=== PATIENT | male | born 1970 | race Caucasian/White ===

== ENCOUNTER 2021-05-07 10:17 | Emergency (ER) | payer MEDICAID ==
[~2021-05-07] VITALS: Ht 172.7 cm; Wt 95.5 kg
[~2021-05-07 10:17] MED LIST: ZOF4T PO
[2021-05-07] MEDS ORDERED: normal saline 1000ML IV soln IVB ONE (11:20)
[2021-05-07 11:23] LABS: EOSINOPHILS % (AUTO) 0 % (0-6); HEMATOCRIT 42.1 % (42.0-52.0); HEMOGLOBIN 14.2 g/dl (14.0-17.9); LYMPHOCYTES # (AUTO) 1.1 X10'3 (1.1-4.8); LYMPHOCYTES % (AUTO) 38.5 % (21-51); MEAN CORPUSCULAR HEMOGLOBIN 29.4 PG (27.0-31.0); MEAN CORPUSCULAR HGB CONC 33.6 g/dL (33.0-36.5); MEAN CORPUSCULAR VOLUME 87.4 FL (78-98); MEAN PLATELET VOLUME 8.6 FL (7.4-10.4); MONOCYTES # (AUTO) 0.5 X10'3 (0-0.9); MONOCYTES % (AUTO) 15.7 % (2-12); NEUTROPHILS # (AUTO) 1.3 X10'3 (1.8-7.7); NEUTROPHILS % (AUTO) 44.8 % (42-75); PLATELET COUNT 232 X10'3 (140-440); RED BLOOD COUNT 4.82 X10'6 (4.70-6.10); RED CELL DISTRIBUTION WIDTH 13.7 % (11.5-14.5); WHITE BLOOD COUNT 2.9 X10'3 (4.5-11.0)
[2021-05-07 11:36] LABS: ALANINE AMINOTRANSFERASE 30 U/L (12-78); ALBUMIN/GLOBULIN RATIO 0.7 (1.1-1.5); ALKALINE PHOSPHATASE 111 IU/L (46-116); ANION GAP 9 (8-16); ASPARTATE AMINO TRANSFERASE 30 U/L (10-37); BILIRUBIN,TOTAL 0.2 MG/DL (0.1-1.0); BLOOD UREA NITROGEN 12 MG/DL (7-18); BUN/CREATININE RATIO 10.3 (5.4-32.0); CALCIUM 7.5 MG/DL (8.5-10.1); CHLORIDE 104 MMOL/L (99-107); CREATININE 1.16 MG/DL (0.60-1.10); GLUCOSE 83 MG/DL (70-104); POTASSIUM 3.9 MMOL/L (3.5-5.1); SODIUM 138 MMOL/L (135-145); TOTAL CARBON DIOXIDE 25.2 MMOL/L (24-32); TOTAL PROTEIN 7.3 G/DL (6.4-8.2); eGFR 66 ML/MIN
[2021-05-07] MEDS ORDERED: iohexol 350MG/ML 100ml bottle IV ONE ×2 (12:03→13:38)
[2021-05-07] MEDS ORDERED: diltiazem 5mg/ml 5ml inj. IV ONE (12:10)
[2021-05-07 12:24] LABS: PLATELET ESTIMATE NORMAL; TOTAL CELLS COUNTED 100
--- NOTE | 2021-05-07 12:41 | NUR ---
PAGE SENT TO PICC NURSE FOR LINE PLACEMENT.
--- NOTE | 2021-05-07 13:45 | NUR ---
PICC NURSE AT BEDSIDE.
--- NOTE | 2021-05-07 14:10 | NUR ---
Patient ambulated with SPO2 drop to 84% on room air, pat instructed to rest and deep breathe, SPO2 raised to 100%, LEELA Perales aware.
[2021-05-07] MEDS ORDERED: ASCO-134 PO (14:55)
[2021-05-07] MEDS ORDERED: ALBU6.7H9 INH (15:36)
[2021-05-07] MEDS ORDERED: AZIT500T PO (15:36)
[2021-05-07] MEDS ORDERED: DEXA6TAB6 PO (15:36)
--- NOTE | 2021-05-07 15:44 | NUR ---
Patient requires O2 for discharge, arranging home O2, notified MD and ER staff
[2021-05-07 16:30] VITALS: BP 141/81
--- NOTE | 2021-05-07 16:55 | NUR ---
[employer] customer sales representative at bedside to educate patient on use of home oxygen use.
== END 2021-05-07 17:50 | disposition home or self-care (01) ==
LOC: ER 10:18
DX: U07.1 COVID-19 (principal); J12.82 Pneumonia due to coronavirus disease 2019; I48.0 Paroxysmal atrial fibrillation; R05 Cough; R55 Syncope and collapse; R20.0 Anesthesia of skin; R42 Dizziness and giddiness; F17.200 Nicotine dependence, unspecified, uncomplicated; Z79.2 Long term (current) use of antibiotics; Z79.899 Other long term (current) drug therapy
CPT/HCPCS: 36415; 70450; 71045; 71275; 80053; 83880; 84484; 85007; 85025; 87635; 93005; 96360; 99285; C9803; J7030; Q9967